=== PATIENT | male | born 1970 | race Hispanic/Latino ===

== ENCOUNTER 2022-10-08 08:11 | Emergency (ER) | payer SELFPAY ==
[~2022-10-08] VITALS: Ht 162.6 cm; Wt 78.0 kg
[2022-10-08 08:32] VITALS: BP 145/80
[2022-10-08 08:45] VITALS: BP 144/85
[2022-10-08 08:48] LABS: BASO% 0.7 % (0-3); HEMATOCRIT 45.3 % (39.0-50.0); HEMOGLOBIN 14.9 g/dl (14.0-18.0); IMMATURE GRANULOCYTES 0.1 % (0.0-5.0); LYMPH% 24.1 % (15-41); MEAN CELL VOLUME 96.4 fL CALC (80.0-100.0); MEAN CORPUSCULAR HGB 31.7 pG CALC (26.0-32.0); MEAN CORPUSCULAR HGB CONC 32.9 g/dL CAL (32.0-36.0); MONO% 6.6 % (2-13); NEUT# 4.64 thou/uL (1.82-7.42); NEUT% 65.5 % (42-76); RED BLOOD COUNT 4.7 mill/uL (4.70-6.10)
[2022-10-08 08:55] LABS: URINE BILIRUBIN - DIPSTICK NEGATIVE (NEGATIVE); URINE BLOOD DIPSTICK TRACE-INTACT (NEGATIVE); URINE COLOR YELLOW; URINE GLUCOSE - DIPSTICK NEGATIVE (NEGATIVE); URINE KETONE NEGATIVE (NEGATIVE); URINE LEUK ESTERASE NEGATIVE (NEGATIVE); URINE PROTEIN - DIPSTICK NEGATIVE (NEG-TRACE); URINE SPECIFIC GRAVITY 1.025; URINE UROBILINOGEN - DIPSTICK 0.2 E.U./dL (0.2)
[2022-10-08 08:57] LABS: URINE NITRITE - DIPSTICK NEGATIVE (Negative)
[2022-10-08 09:04] LABS: ALBUMIN 4.3 g/dL (3.2-5.0); ALKALINE PHOSPHATASE 102 u/l (38-126); BILIRUBIN, TOTAL 0.8 mg/dL (0.2-1.3); BUN 23 mg/dL (9-20); BUN/CREATININE RATIO 21 (12-20 (CALC)); CARBON DIOXIDE 26 mmol/l (22-30); CHLORIDE 107 mmol/l (95-108); CREATININE 1.1 mg/dL (0.7-1.3); GFR FOR AFR.AMER. > 60 ML/MIN (>=60 (CALC)); GFR OTHER RACES > 60 ML/MIN (>=60 (CALC)); SGOT/AST 42 u/l (17-59); SODIUM 138 mmol/l (137-146); TOTAL PROTEIN 7.7 g/dL (6.3-8.2)
[2022-10-08 09:06] LABS: ANION GAP 9 (6-22 (CALC)); POTASSIUM 4.1 mmol/l (3.5-5.1)
[2022-10-08 09:15] VITALS: BP 136/92
[2022-10-08 09:30] VITALS: BP 132/88
[2022-10-08] MEDS ORDERED: CEPHALEXIN500 MG PO (09:41)
[2022-10-08] MEDS ORDERED: MOTRIN400 MG/TAB PO (09:41)
[2022-10-08 09:45] VITALS: BP 135/96
[2022-10-08 09:59] VITALS: BP 135/96
== END 2022-10-08 10:02 | disposition home or self-care (01) | DRG 696 ==
LOC: ED 08:11
PROVIDERS: Family Medicine
DX: R31.9 Hematuria, unspecified (principal); R10.32 Left lower quadrant pain; I10 Essential (primary) hypertension